=== PATIENT | female | born 1970 | race Caucasian/White ===

== ENCOUNTER 2016-06-01 14:38 | Inpatient (IN) | payer OTHER ==
[2016-06-01 14:49] VITALS: BMI 32.1
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
[2016-06-01] MEDS ORDERED: MAGNESIUM CITRATE 300 ML BOTTLE PO PRN (15:23)
[2016-06-01] MEDS ORDERED: NICOTINE POLACRILEX 2 MG GUM BC PRN (15:23)
[2016-06-01] MEDS ORDERED: diphenhydrAMINE HCL 50 MG CAPSULE PO PRN (15:23)
[2016-06-01] MEDS ORDERED: chlordiazePOXIDE HCL 25 MG CAPSULE PO PRN (15:23)
[2016-06-01] MEDS ORDERED: MAG HYDROX/AL HYDROX/SIMETH 30 ML UNIT-DOSE CUP PO PRN (15:23)
[2016-06-01] MEDS ORDERED: IBUPROFEN 400 MG TABLET (FP) PO PRN (15:23)
[2016-06-01] MEDS ORDERED: LOPERAMIDE HCL 2 MG CAPSULE PO PRN (15:23)
[2016-06-01] MEDS ORDERED: MAGNESIUM HYDROX 2400MG/30ML ORAL SUSPENSION 30 ML CUP PO PRN (15:23)
[2016-06-01] MEDS ORDERED: MENTHOL/PHENOL 1 EACH UD MM PRN (15:23)
[2016-06-01] MEDS ORDERED: guaiFENesin/D-METHORPHAN HB 10 ML UNIT-DOSE CUPS PO PRN (15:23)
[2016-06-01] MEDS ORDERED: P-EPHED 60MG/TRIPROLIDI 2.5MG TABLET PO PRN (15:23)
[2016-06-01] MEDS ORDERED: ACETAMINOPHEN 325 MG TABLET (FP) PO PRN (15:23)
[2016-06-01] MEDS: NICOTINE 21 MG/24 HOURS TOPICAL PATCH TD SCH (17:32)
[2016-06-01] MEDS: chlordiazePOXIDE HCL 25 MG CAPSULE PO SCH ×2 (17:33→23:17)
[2016-06-01] MEDS ORDERED: levETIRAcetam 500 MG TABLET (FP) PO ONE (17:53)
--- NOTE | 2016-06-01 18:01 | PN ---
[facility] Progress Note Note: history of seizure on keppra 1500 mgs po bid,DEPAKOTE 500 MGS PO BID,TRILEPTAL 600 MGS PO BID, TOPOMAX 200 MGS PO BID,NON COMPLIANCE,TO GIVE KEPPRA 1500 MGS PO NOW, SEIZURE PRECAUTION
[2016-06-01] MEDS: TOPIRAMATE 100 MG TABLET PO SCH (18:31)
--- NOTE | 2016-06-01 20:04 | PN ---
S Progress Note Note: RESPONDED TO RAPID RESPOND ON ARRIVAL PATIENT IS ALERT NO SEIZURE ACTIVITY BLINKING HER EYELASH PUPIL EQUAL REACT TO LIGHT BP 28/70,P85,R18,97.1 STATED BY NURSE PATIENT HAS SEIZURE LASTED 30 SECOND IMPRESSION R/O SEIZURE TREATMENT CLOSE OBSERVATION AND MONITORING CONTINUE ANTI SEIZURE MEDICATION
[2016-06-01] MEDS: OXcarbazepine 300 MG TABLET (UD) PO SCH (23:16)
[2016-06-01] MEDS: THIAMINE HCL 100 MG TABLET (FP) PO SCH (23:17)
[2016-06-01] MEDS: BUDESONIDE/FORMETEROL FUMARATE 160/4.5 mcg INHALER IH SCH (23:17)
[2016-06-01] MEDS: traZODone HCL 100 MG TABLET (FP) PO SCH (23:17)
[2016-06-01] MEDS: DIVALPROEX SODIUM 500 MG TABLET E.C. PO SCH (23:17)
[2016-06-01] MEDS: levETIRAcetam 500 MG TABLET (FP) PO SCH (23:18)
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
[2016-06-02] MEDS: chlordiazePOXIDE HCL 25 MG CAPSULE PO SCH ×4 (05:50→23:30)
--- NOTE | 2016-06-02 07:15 | PN ---
[facility] Progress Note Note: PT RETURNED FROM [facility] AFTER EVAL FOR S/P "SEIZURE" CT SCAN NEGATIVE LOADED WITH VALPORIC ACID MEDICALLY CLEARED. PT AWAKE ALERT NAD ARGUING WITH STAFF THIS MORNING PER NURSES REPORT MAINTAIN SEIZURE PRECAUTIONS FALL/ SAFETY PRECAUTIONS
[2016-06-02] MEDS: TOPIRAMATE 100 MG TABLET PO SCH ×3 (08:32→20:31)
--- NOTE | 2016-06-02 10:53 | PN ---
S CIWA - CIWA Score Nausea/Vomitin Muscle Tremors: 3 Anxiety: 2 Agitation: 2 Paroxysmal Sweats: 1-Minimal Palms Moist Orientation: 1-Uncertain about Date Tacttile Disturbances: 1-Very Mild Itch/Numbness Auditory Disturbances: 1-Very Mild Visual Disturbances: 1-Very Mild Sensitivity Headache: 2-Mild CIWA-Ar Total Score: 17 [facility] Progress Note (SOAP) Subjective: ALERT,IRRITABLE,ANXIOUS,INTERRUPTED SLEEP,TREMOR,INTERRUPTED SLEEP Objective: 06/02/16 10:51 Vital Signs Temperature 96.6 F L 06/02/16 06:00 Pulse Rate 80 06/02/16 06:00 Respiratory Rate 18 06/02/16 06:00 Blood Pressure 108/69 06/02/16 06:00 O2 Sat by Pulse Oximetry (%) EKG NSR,NORMAL ECG Assessment: 06/02/16 10:53 WITHDRAWAL SYMPTOM Plan: CONTINUE DETOX
--- NOTE | 2016-06-02 14:40 | EKG ---
Test Reason : Blood Pressure : / mmHG Vent. Rate : 080 BPM Atrial Rate : 080 BPM P-R Int : 162 ms QRS Dur : 074 ms QT Int : 366 ms P-R-T Axes : 064 052 032 degrees QTc Int : 422 ms NORMAL SINUS RHYTHM NORMAL ECG WHEN COMPARED WITH ECG OF 26-SEP-2012 02:39, NO SIGNIFICANT CHANGE WAS FOUND Confirmed by RAFFAELE DE LA VEGA MD ([id number]) on 06/02/2016 2:39:50 PM Referred By: Confirmed By:RAFFAELE DE LA VEGA MD
[2016-06-02] MEDS: DIVALPROEX SODIUM 500 MG TABLET E.C. PO SCH ×2 (15:57→21:52)
[2016-06-02] MEDS: levETIRAcetam 500 MG TABLET (FP) PO SCH ×2 (15:58→21:53)
[2016-06-02] MEDS: OXcarbazepine 300 MG TABLET (UD) PO SCH ×2 (15:59→21:53)
[2016-06-02] MEDS: BUDESONIDE/FORMETEROL FUMARATE 160/4.5 mcg INHALER IH SCH ×2 (16:00→21:53)
[2016-06-02] MEDS: PRENATAL VITAMINS W/ FOLIC ACID TABLET (FP) PO SCH (16:01)
[2016-06-02] MEDS: NICOTINE 21 MG/24 HOURS TOPICAL PATCH TD SCH (16:01)
[2016-06-02] MEDS: traZODone HCL 100 MG TABLET (FP) PO SCH (21:52)
[2016-06-02] MEDS: THIAMINE HCL 100 MG TABLET (FP) PO SCH (21:53)
[2016-06-03] MEDS: levETIRAcetam 500 MG TABLET (FP) PO SCH ×3 (00:05→23:09)
[2016-06-03] MEDS: chlordiazePOXIDE HCL 25 MG CAPSULE PO SCH ×3 (00:05→10:54)
[2016-06-03] MEDS: OXcarbazepine 300 MG TABLET (UD) PO SCH ×3 (00:05→23:08)
[2016-06-03] MEDS: DIVALPROEX SODIUM 500 MG TABLET E.C. PO SCH ×3 (00:05→23:07)
[2016-06-03 09:57] LABS: ALBUMIN 3.3 g/dl (3.4-5.0); ANION GAP 14 (8-16); CALCIUM 8.7 mg/dL (8.5-10.1); CO2 15 mmol/L (21-32); CREATININE 0.8 mg/dL (0.55-1.02); GLUCOSE,RANDOM 124 mg/dL (74-106); SGOT/AST 12 U/L (15-37); SGPT/ALT 17 U/L (12-78)
[2016-06-03 10:00] LABS: ALK PHOS 60 U/L (45-117); BILIRUBIN,TOTAL 0.2 mg/dL (0.2-1.0)
--- NOTE | 2016-06-03 10:04 | PN ---
S CIWA - CIWA Score Nausea/Vomitin Muscle Tremors: 3 Anxiety: 2 Agitation: 3 Paroxysmal Sweats: 1-Minimal Palms Moist Orientation: 0-Oriented Tacttile Disturbances: 1-Very Mild Itch/Numbness Auditory Disturbances: 1-Very Mild Visual Disturbances: 1-Very Mild Sensitivity Headache: 2-Mild CIWA-Ar Total Score: 17 [facility] Progress Note (SOAP) Subjective: ALERT,IRRITABLE,ANXIOUS,INTERRUPTED SLEEP,TREMOR Objective: 06/03/16 10:03 Vital Signs Temperature 98.4 F 06/03/16 09:50 Pulse Rate 98 H 06/03/16 09:50 Respiratory Rate 18 06/03/16 09:50 Blood Pressure 99/61 06/03/16 09:50 O2 Sat by Pulse Oximetry (%) Assessment: 06/03/16 10:03 WITHDRAWAL SYMPTOM Plan: CONTINUE DETOX,SEIZURE PRECAUTION,CONTINUE DETOX,LABS PENDING
[2016-06-03 10:38] LABS: MCH 25.1 pg (25.7-33.7); MCHC 30.7 g/dl (32.0-36.0); MEAN CELL VOLUME 81.7 fl (80-96); MEAN PLT VOLUME 8.7 fl (7.5-11.1); PLATELET COUNT 240 K/MM3 (134-434); RDW 21.7 % (11.6-15.6); WHITE BLOOD COUNT 4.7 K/mm3 (4.0-10.0)
[2016-06-03] MEDS: PRENATAL VITAMINS W/ FOLIC ACID TABLET (FP) PO SCH (10:54)
[2016-06-03] MEDS: TOPIRAMATE 100 MG TABLET PO SCH ×2 (10:55→19:07)
[2016-06-03 10:58] LABS: INR 0.93 (0.82-1.09); PROTHROMBIN TIME (PATIENT) 10.2 SEC (9.98-11.88)
[2016-06-03] MEDS: BUDESONIDE/FORMETEROL FUMARATE 160/4.5 mcg INHALER IH SCH ×2 (11:29→23:07)
[2016-06-03] MEDS: NICOTINE 21 MG/24 HOURS TOPICAL PATCH TD SCH (11:29)
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
[2016-06-03] MEDS: chlordiazePOXIDE 5 MG CAPSULE PO SCH ×3 (18:33→23:08)
[2016-06-03] MEDS: QUEtiapine FUMARATE 100 MG TABLET (FP) PO SCH (23:07)
[2016-06-03] MEDS: THIAMINE HCL 100 MG TABLET (FP) PO SCH (23:08)
[2016-06-04] MEDS: chlordiazePOXIDE 5 MG CAPSULE PO SCH ×2 (05:19→10:54)
[2016-06-04] MEDS: PRENATAL VITAMINS W/ FOLIC ACID TABLET (FP) PO SCH (10:51)
[2016-06-04] MEDS: levETIRAcetam 500 MG TABLET (FP) PO SCH ×2 (10:52→22:00)
[2016-06-04] MEDS: OXcarbazepine 300 MG TABLET (UD) PO SCH ×2 (10:52→21:57)
[2016-06-04] MEDS: SERTRALINE HCL 50 MG TABLET (FP) PO SCH ×2 (10:52→11:24)
[2016-06-04] MEDS: NICOTINE 21 MG/24 HOURS TOPICAL PATCH TD SCH (10:55)
[2016-06-04] MEDS: BUDESONIDE/FORMETEROL FUMARATE 160/4.5 mcg INHALER IH SCH ×2 (10:55→21:57)
[2016-06-04] MEDS: DIVALPROEX SODIUM 500 MG TABLET E.C. PO SCH ×2 (10:55→22:00)
--- NOTE | 2016-06-04 11:19 | PN ---
[facility] Progress Note (SOAP) Subjective: interrupted sleep, sweats, lbp Objective: 06/04/16 11:18 Vital Signs Temperature 98.2 F 06/04/16 10:05 Pulse Rate 99 H 06/04/16 10:05 Respiratory Rate 16 06/04/16 10:05 Blood Pressure 102/62 06/04/16 10:05 O2 Sat by Pulse Oximetry (%) Laboratory Tests 06/02/16 06/03/16 06/03/16 08:00 08:00 08:00 WBC 4.7 RBC 4.30 Hgb 10.8 D Hct 35.1 MCV 81.7 MCHC 30.7 L RDW 21.7 H Plt Count 240 MPV 8.7 INR Sodium 139 Potassium 3.9 Chloride 110 H Carbon Dioxide 15 L D Anion Gap 14 BUN 7 Creatinine 0.8 D Creat Clearance w eGFR > 60 Random Glucose 124 H Calcium 8.7 Total Bilirubin 0.2 AST 12 L ALT 17 Alkaline Phosphatase 60 Total Protein 7.0 Albumin 3.3 L RPR Titer Nonreactive 06/03/16 08:00 WBC RBC Hgb Hct MCV MCHC RDW Plt Count MPV INR 0.93 Sodium Potassium Chloride Carbon Dioxide Anion Gap BUN Creatinine Creat Clearance w eGFR Random Glucose Calcium Total Bilirubin AST ALT Alkaline Phosphatase Total Protein Albumin RPR Titer pt aox3 in nad ambulating Assessment: 06/04/16 11:18 withdrawl sx;s lbp Plan: cont. detox increase fluids flexeril 10mg tid/prn d/c in am
[2016-06-04] MEDS: TOPIRAMATE 100 MG TABLET PO SCH ×2 (11:22→19:55)
[2016-06-04] MEDS: chlordiazePOXIDE HCL 10 MG CAPSULE PO SCH ×2 (17:55→22:12)
[2016-06-04] MEDS: QUEtiapine FUMARATE 100 MG TABLET (FP) PO SCH (22:00)
[2016-06-04] MEDS: THIAMINE HCL 100 MG TABLET (FP) PO SCH (22:00)
[2016-06-05] MEDS: chlordiazePOXIDE HCL 10 MG CAPSULE PO SCH (05:16)
[2016-06-05 06:22] VITALS: BP 124/64; PULSE 88; TEMP 98.1
--- NOTE | 2016-06-05 08:29 | DS ---
[facility] Detox Discharge Summary Admission Date: 06/01/16 Discharge Date: 06/05/16 - History Present History: Alcohol Dependence - Physical Exam Results Vital Signs: Vital Signs Temperature 98.1 F 06/05/16 06:21 Pulse Rate 88 06/05/16 06:21 Respiratory Rate 18 06/05/16 06:21 Blood Pressure 124/64 06/05/16 06:21 O2 Sat by Pulse Oximetry (%) - Treatment Hospital Course: Detox Protocol Followed, Detoxed Safely, Responded well, Discharged Condition Good, Rehab Referral Accepted - Medication Discharge Medications: Ambulatory Orders Acetaminophen [Tylenol .Regular Strength -] 650 mg PO Q4H PRN #20 tablet Albuterol Sulfate Inhaler - [Ventolin HFA Inhaler -] 2 inh IH Q6H PRN #0 inh Budesonide/Formeterol Fumarate [SYMBICORT 160/4.5mcg -] 2 inh IH BID #0 inhaler 11/09/12 Folic Acid - 1 mg PO DAILY #0 tablet 11/09/12 Levetiracetam [Keppra -] 1,500 mg PO BID #0 tablet 11/09/12 Multivitamins [Multivit ([facility] Formulary)] 1 udtab PO DAILY #0 tab 11/09/12 Oxcarbazepine [Trileptal -] 600 mg PO BID #0 tablet 11/09/12 Polyethylene Glycol 3350 [Miralax 255 gm Btl -] 17 gm PO DAILY PRN #1 bottle Sertraline HCl [Zoloft -] 50 mg PO DAILY #0 tablet 11/09/12 Thiamine HCl [Vitamin B1 -] 100 mg PO DAILY #0 tablet 11/09/12 Topiramate [Topamax -] 200 mg PO BID@0700,1900 #0 tab 11/09/12 Trazodone HCl [Desyrel -] 100 mg PO HS #0 tablet 11/09/12 Sertraline HCl [Zoloft -] 100 mg PO DAILY #30 tablet 06/03/16 - Diagnosis (1) Bipolar 1 disorder Current Visit: Yes Status: Acute (2) PTSD (post-traumatic stress disorder) Current Visit: Yes Status: Acute (3) Alcohol dependence Current Visit: Yes Status: Chronic (4) Seizure disorder Current Visit: No Status: Suspected - AMA Did Patient Leave Against Medical Advice: No
== END 2016-06-05 09:10 | disposition home or self-care (01) | DRG 775 ==
LOC: YASAS 14:38 → Y6N 15:38
PROVIDERS: ADMIT Internal Medicine; ATTEND Internal Medicine
PROC: HZ2ZZZZ Detoxification Services for Substance Abuse Treatment (ICD-10-PCS; principal; 2016-06-01)
DX: F10.230 Alcohol dependence with withdrawal, uncomplicated (principal); F17.210 Nicotine dependence, cigarettes, uncomplicated; F31.89 Other bipolar disorder; F41.0 Panic disorder [episodic paroxysmal anxiety]; G40.509 Epileptic seizures related to external causes, not intractable, without status epilepticus; M54.5 Low back pain; J45.909 Unspecified asthma, uncomplicated; Z86.718 Personal history of other venous thrombosis and embolism; Z86.2 Personal history of diseases of the blood and blood-forming organs and certain disorders involving the immune mechanism
CPT/HCPCS: 36415; 80053; 85027; 85610; 86593; 93005; 93010

== ENCOUNTER → 2016-06-02 | Emergency (ER) | payer OTHER ==
[~2016-06-02] MED LIST: VALPROATE SODIUM 500 MG/5 ML VIAL IVPB ONE; VALPROATE SODIUM 500 MG/5 ML VIAL ONE
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
[2016-06-02 01:27] VITALS: BP 107/69; PULSE 85; TEMP 97.5; BMI 32.1
[2016-06-02 02:28] LABS: BASOPHIL 0.8 % (0-2.0); EOSINOPHIL 2.9 % (0-4.5); MEAN PLT VOLUME 8.2 fl (7.5-11.1); WHITE BLOOD COUNT 5.1 K/mm3 (4.0-10.0)
[2016-06-02 02:28] LABS: INR 0.96 (0.82-1.09); PROTHROMBIN TIME (PATIENT) 10.6 SEC (9.98-11.88)
[2016-06-02 02:30] LABS: ACTIVATED PTT 30.8 SECONDS (26.9-34.4)
[2016-06-02 02:32] LABS: MCH 23.9 pg (25.7-33.7); MCHC 30.1 g/dl (32.0-36.0); MEAN CELL VOLUME 79.2 fl (80-96); NEUTROPHILS 41.5 % (42.8-82.8); PLATELET COUNT 221 K/MM3 (134-434); RDW 21.4 % (11.6-15.6)
[2016-06-02 03:05] LABS: ALBUMIN 2.9 g/dl (3.4-5.0); ALK PHOS 53 U/L (45-117); ANION GAP 9 (8-16); BILIRUBIN,TOTAL 0.2 mg/dL (0.2-1.0); CALCIUM 8.2 mg/dL (8.5-10.1); CO2 20 mmol/L (21-32); CREATININE 0.6 mg/dL (0.55-1.02); GLUCOSE,RANDOM 114 mg/dL (74-106); SGOT/AST 12 U/L (15-37); SGPT/ALT 17 U/L (12-78); TOT PROT 5.9 g/dl (6.4-8.2)
[2016-06-02 04:39] LABS: ANISOCYTOSIS 2+; HYPOCHROMIA 1+; PLATELET COMMENT2 NO CLOTTING DETECTED; PLATELET ESTIMATE ADEQUATE (NORMAL); POIKILOCYTOSIS 2+; POLYCHROMASIA 1+
[2016-06-02 04:40] LABS: MICROCYTOSIS 2+
--- NOTE | 2016-06-02 04:43 | PDOC ---
*Physical Exam - Vital Signs Last Vital Signs Temp Pulse Resp BP Pulse Ox 97.5 F L 85 18 107/69 100 06/02/16 01:21 06/02/16 01:21 06/02/16 01:21 06/02/16 01:21 06/02/16 01:21 ED Treatment Course - LABORATORY CBC & Chemistry Diagram: 06/02/16 02:16 06/02/16 02:16 - ADDITIONAL ORDERS Additional order review: Laboratory Results 06/02/16 06/02/16 06/02/16 02:16 02:16 02:16 INR PTT (Actin FS) Sodium 144 Potassium 3.8 Chloride 115 H Carbon Dioxide 20 L Anion Gap 9 BUN 8 Creatinine 0.6 Creat Clearance w eGFR > 60 Random Glucose 114 H D Lactic Acid Calcium 8.2 L Total Bilirubin 0.2 D AST 12 L ALT 17 Alkaline Phosphatase 53 Total Protein 5.9 L Albumin 2.9 L D Serum , Qual Negative Valproic Acid 30.199 L 06/02/16 06/02/16 01:55 01:55 INR 0.96 PTT (Actin FS) 30.8 Sodium Potassium Chloride Carbon Dioxide Anion Gap BUN Creatinine Creat Clearance w eGFR Random Glucose Lactic Acid 1.233 Calcium Total Bilirubin AST ALT Alkaline Phosphatase Total Protein Albumin Serum , Qual Valproic Acid 06/02/16 02:16 RBC 3.98 MCV 79.2 L MCHC 30.1 L RDW 21.4 H D MPV 8.2 D Neutrophils % 41.5 L Lymphocytes % 44.7 H Monocytes % 10.1 Eosinophils % 2.9 D Basophils % 0.8 - Medications Given in the ED: ED Medications Discontinued Medications Generic Name Dose Route Start Last Admin Trade Name Niyah PRN Reason Stop Dose Admin Valproate Sodium 500 mg 06/02/16 03:57 06/02/16 04:09 Depacon Injection - IVPB 06/02/16 03:58 500 mg ONCE ONE Administration Medical Decision Making - Medical Decision Making 06/02/16 04:42 Pt signed out to me for fall and seizures at [facility]. She is supposed to be on blood thinners. Her INR is 1, and she is not at increased risk for bleeding. Head CT is normal: Patient Name: Breana Oropeza THIS IS A PRELIMINARY REPORT FROM [employer] [employer] [employer] EXAM: CT of the brain without contrast. IMAGES: 70. There is no intracranial hemorrhage, vasogenic edema/gross contusion or acute fracture; old left lamina papyracea fracture deformity. Impression: no hemorrhage or acute fracture. THIS DOCUMENT HAS BEEN ELECTRONICALLY SIGNED SHe was loaded with valproic acid and she will be sent back to [facility]. They accepted her back ([place] is aware) *DC/Admit/Observation/Transfer Diagnosis at time of Disposition: Seizure disorder, Alcohol dependence - Discharge Dispostion Disposition: I.P. ALCOHOL/SUBS ABUSE REHAB Condition at time of disposition: Guarded
== END | disposition other institution (70) ==
LOC: JER 01:12 → SUPCPDRO 01:12
PROC: 3E033GC Introduction of Other Therapeutic Substance into Peripheral Vein, Percutaneous Approach (ICD-10-PCS; principal; 2016-06-02)
DX: G40.802 Other epilepsy, not intractable, without status epilepticus (principal); F10.20 Alcohol dependence, uncomplicated; J45.909 Unspecified asthma, uncomplicated; F43.10 Post-traumatic stress disorder, unspecified; Z86.718 Personal history of other venous thrombosis and embolism; Z79.01 Long term (current) use of anticoagulants
CPT/HCPCS: 36415; 70450-TC; 71010-TC; 80053; 80164; 83605; 84703; 85025; 85610; 85730; 96374; 99282-25